=== PATIENT | male | born 1980 | race Caucasian/White ===

== ENCOUNTER 2024-01-21 08:59 | Emergency (ER) | payer BC ==
[2024-01-21 09:12] VITALS: BP 137/91; PULSE 81; RESP 16; TEMP 98.1; BMI 25.4
== END 2024-01-21 09:55 | disposition home or self-care (01) ==
LOC: FER 08:59
PROC: 0XQSXZZ Repair Right Ring Finger, External Approach (ICD-10-PCS; principal; 2024-01-21)
DX: S61.214A Laceration without foreign body of right ring finger without damage to nail, initial encounter (principal); W26.0XXA Contact with knife, initial encounter
CPT/HCPCS: 99282-25